=== PATIENT | male | born 1960 | race Caucasian/White ===

== ENCOUNTER → 2020-08-18 | Outpatient (CLI) | payer BC | LOC: LAB 12:41 | PROVIDERS: ATTEND Family Medicine | DX: Z20.828 Contact with and (suspected) exposure to other viral communicable diseases (principal) ==

== ENCOUNTER → 2020-09-04 | Outpatient (CLI) | payer OTHER | LOC: CAT 13:36 | PROVIDERS: ATTEND Family Medicine | DX: Z13.6 Encounter for screening for cardiovascular disorders (principal); I25.10 Atherosclerotic heart disease of native coronary artery without angina pectoris; E78.00 Pure hypercholesterolemia, unspecified ==

== ENCOUNTER 2020-11-12 14:40 | Emergency (ER) | payer BC, OTHER ==
[~2020-11-12] VITALS: Ht 177.8 cm; Wt 84.4 kg
--- NOTE | ~2020-11-12 | EMS ---
[address] [address] EMS Patient Care Report Name: ODALIS BECERRA Room #: REG KIERA Manzanares#: [id number] Admission: 11/12/20 Attend Phys: Discharge: Date of : 62 Report #: [id number] THIS REPORT FOR: //name// Report Transmitted: 11/12/2020 16:10 EMS Care Summary [facility] MED-ACT Incident [id number] @ 11/12/2020 13:56 Incident Location [address] [place] [address] Patient ODALIS BECERRA Male, 60 Years 1960 Patient Address [address] [place] [address] Patient History Hypertension (HTN),Hyperlipidemia, Patient Allergies No known allergies, Patient Medications Rosuvastatin, Aspirin, Chief Complaint Shaking Disposition Transported No Lights/[place]raymer Dispatch Reason Unconscious/Fainting Transported To [facility] Narrative Complaint: Seizure type event followed by syncope with dizziness History: Pt reports that he was standing at the kitchen sink, doing dishes when he suddenly felt dizzy and lightheaded. [address] [address] EMS Patient Care Report Name: ODALIS BECERRA Room #: REG Leighton#: [id number] Admission: 11/12/20 Attend Phys: Discharge: Date of : 62 Report #: [id number] Pt's fiance reports that while the patient was doing the dishes, he began to shake his arms vigorously, splashing water everywhere. She reports that this lasted for a couple of seconds when the patient had a syncopal episode and collapsed to the floor, possibly hitting his head on the counters. Pt was unresponsive for approx 5 seconds when the patient became alert and oriented and was able to communicate with her. 911 was then call. Pt reports having a similar event approx 3 years ago that he believes was connected with heat exhaustion. Pt reports that he was not seen for that event. Pt denies chest pain, denies shortness of breath, denies headache. Assessment: Pt found sitting upright on floor in kitchen of home, pt has no obvious s / s of acute distress but does appear very diaphoretic and slightly pale. Pt has no obvious s / s of trauma noted. Rendered Treatment: Pt evaluated, vitals assessed with bilateral BP's, EKG monitored with 12 lead. Pt reports feeling better with the exception of feeling a little dizzy. Pt assisted to standing position and able to ambulate to front door, to cot and onto cot. Pt secured and moved to unit. Transport: Vitals re-assessed, EKG monitored, IV established, blood glucose obtained, bio-com report to ER given. Pt states that his family was diagnosed with COVID approx 1 week after Thanksgi and that he had quarteened during that period. Destination: Pt transported to [facility] ER via EMS. Pt care transferred to RN in ER [place] bed with no changes en route. Pt able to stand and sit on ER bed without difficulty. Initial Vitals @14:08P: 93,SpO2: 95, @14:06P: 97,R: 16,BP: 153/86,Pain: 0/10,GCS: 15,Temp: 96.4F,SpO2: 96,Revised Trauma: 12, @14:09P: 90,R: 16,BP: 161/96,SpO2: 94, @14:21P: 85,R: 16,BP: 152/89,Glucose: 103,SpO2: 96, @14:31P: 80,R: 16,BP: 146/82,SpO2: 95, Assessments @14:25MENTAL:Person Oriented,Time Oriented,Place Oriented,Event Oriented,SKIN:Diaphoresis,Pale,HEENT:Head/Face: No Abnormalities,Eyes: No Abnormalities,LUNG SOUNDS:General: No Abnormalities,ABDOMEN:General: No Abnormalities,PELVIS//GI:EXTREMITIES:Left Arm: No Abnormalities,Right Arm: No Abnormalities,Left Leg: No Abnormalities,Right Leg: No Abnormalities,PULSE:Radial: 2+ Normal,NEURO:No Abnormalities, [address] [address] EMS Patient Care Report Name: ODALIS BECERRA Room #: [facility] LázaroMaria C#: [id number] Admission: 11/12/20 Attend Phys: Discharge: Date of : 62 Report #: [id number] Impression Syncope / Fainting Procedures @14:0812-Lead ECGResponse: UnchangedSucceeded@14:04Surgical Mask on PatientResponse: Unchanged@14:23Saline Lock 10cc (20 ga) Site: Antecubital-LeftResponse: UnchangedFailed Timeline 13:55,Call Received 13:55,Psap Call 13:56,Dispatched 13:58,En Route 14:01,On Scene 14:03,At Patient 14:04,Surgical Mask on Patient,Response: Unchanged 14:06,BP: 153/86 M,PULSE: 97,RR: 16 R,SPO2: 96 Ox,ETCO2: ,BG: ,PAIN: 0,GCS: 15, 14:08,12-Lead ECG,Response: UnchangedSucceeded, 14:08,BP: / M,PULSE: 93,RR: R,SPO2: 95 Ox,ETCO2: ,BG: ,PAIN: ,GCS: , 14:09,BP: 161/96 M,PULSE: 90,RR: 16 R,SPO2: 94 Ox,ETCO2: ,BG: ,PAIN: ,GCS: , 14:21,BP: 152/89 M,PULSE: 85,RR: 16 R,SPO2: 96 Ox,ETCO2: ,B,PAIN: ,GCS: , 14:23,Saline Lock 10cc 20 ga Site: Antecubital-Left,Response: UnchangedFailed, 14:23,Depart Scene 14:31,BP: 146/82 M,PULSE: 80,RR: 16 R,SPO2: 95 Ox,ETCO2: ,BG: ,PAIN: ,GCS: , 14:34,At Destination 14:55,Call Closed Disclaimer v1.1 Copyright 2020 [employer] This EMS Care Summary contains data elements from the applicable legal record (which may be displayed differently). It is designed to provide pertinent information for the following purposes: continuity of care, clinical quality, and state data reporting. The complete legal record is available to ED staff and administrators of the receiving hospital in [employer]'s Patient Tracker. All data is provided "as is."
[2020-11-12 14:41] VITALS: BP 136/95
[2020-11-12] MEDS ORDERED: ROSUVASTATIN CA10 MG PO (14:56)
[2020-11-12] MEDS ORDERED: SERTRALINE HCL50 MG PO (14:56)
[2020-11-12] MEDS ORDERED: ASA81BEC PO (14:56)
[2020-11-12 15:50] LABS: ABSOLUTE NEUTROPHILS 4.4 thou/uL (1.4-8.2); BASOPHILS 0.6 % (0.0-2.0); EOSINOPHILS 2.8 % (0.0-3.0); HEMATOCRIT 43.1 % (42.0-52.0); HEMOGLOBIN 14.9 gm/dL (14.0-18.0); LYMPHOCYTES 19.4 % (24.0-44.0); MCH 32.2 pg (26.0-34.0); MCHC 34.6 g/dL (28.0-37.0); MCV 93.1 fL (80.0-100.0); MONOCYTES 5.3 % (1.0-8.0); PLATELET COUNT 181 thou/uL (150-400); POLYS 71.9 % (36.0-66.0); RBC 4.63 mil/uL (4.50-6.00); WBC 6.1 thou/uL (4.0-11.0)
[2020-11-12 15:54] LABS: ANION GAP 9 mmol/L (7-16); BUN 22 mg/dL (7-18); CALCIUM 8.6 mg/dL (8.5-10.1); CHLORIDE 105 mmol/L (98-107); CO2 29 mmol/L (21-32); CREATININE 1.2 mg/dL (0.7-1.3); GLUCOSE 120 mg/dL (74-106); POTASSIUM 3.9 mmol/L (3.5-5.1); SODIUM 143 mmol/L (136-145)
[2020-11-12 16:04] LABS: ALBUMIN 3.8 g/dL (3.4-5.0); SGOT 20 U/L (15-37); SGPT 32 U/L (16-63); TOTAL BILIRUBIN 0.6 mg/dL (0.2-1.0); TOTAL PROTEIN 6.6 g/dL (6.4-8.2); TROPONIN-I <0.06 ng/mL (<0.06)
--- NOTE | 2020-11-13 07:17 | EKG ---
[place] [address] [employer] [facility] [place] [address] ELECTROCARDIOGRAM REPORT Name: ODALIS BECERRA Room #: [facility]#: [id number] Admission: 11/12/20 Attend Phys: Discharge: 11/12/20 Date of : 62 Report #: [id number] [facility] ED Test Date: 2020-11-12 Test Time: 15:47:33 Pat Name: ODALIS BECERRA Department: Room: Gender: Big Data Solutions Architect: INÉS : 1960 Requested By: Binu Mcgrath Order Number: [id number] MD: Sterling Dosih Measurements Intervals [place] Rate: 68 P: 55 HI: 163 QRS: 34 QRSD: 83 T: 63 QT: 411 QTc: 438 Interpretive Statements Sinus rhythm Consider left atrial enlargement Abnormal R-wave progression, early transition No previous ECG available for comparison Electronically Signed On 11-13-2020 7:17:31 EDUCATIONAL PSYCHOLOGY TEACHER by Sterling Doshi [email or web address] <ELECTRONICALLY SIGNED> By: Sterling Doshi MD, [facility] 11/13/20 0717 1547 1547 Sterling Doshi MD, FACC /EPI
== END 2020-11-12 17:29 | disposition home or self-care (01) ==
LOC: ER 14:40
PROVIDERS: Physician Assistant
DX: R55 Syncope and collapse (principal); R42 Dizziness and giddiness; R50.9 Fever, unspecified; R56.9 Unspecified convulsions; I10 Essential (primary) hypertension; E78.5 Hyperlipidemia, unspecified; F17.210 Nicotine dependence, cigarettes, uncomplicated; Z79.899 Other long term (current) drug therapy; Z79.82 Long term (current) use of aspirin; W13.3XXA Fall through floor, initial encounter; Y93.89 Activity, other specified; Y92.89 Other specified places as the place of occurrence of the external cause; Y99.8 Other external cause status